=== PATIENT | male | born 1970 | race Hispanic/Latino ===

== ENCOUNTER → 2025-01-18 | Outpatient (CLI) | payer BC ==
--- NOTE | 2025-01-18 10:56 | HMCIMG ---
MRI LUMBAR SPINE WITHOUT CONTRAST INDICATION: Left lower extremity pain and numbness COMPARISON: None PARAMETERS: Long and short axis fat and water weighted sequences were obtained through the lumbar spine. FINDINGS: Normal lordosis of the lumbar spine is maintained. The lumbar vertebral bodies are normal in height, without evidence for acute compression fracture or osseous marrow replacing process. The conus medullaris is normal in signal and terminates at the appropriate level. T12-L1: No significant disc displacement, neuroforaminal narrowing, or central canal stenosis. No significant facet disease identified. L1-L2: No significant disc displacement, neuroforaminal narrowing, or central canal stenosis. No significant facet disease identified. L2-L3: No significant disc displacement, neuroforaminal narrowing, or central canal stenosis. No significant facet disease identified. L3-L4: Shallow left foraminal and posterior right paracentral/foraminal disc displacement contributing to mild bilateral inferior neural foraminal narrowing without any significant central canal stenosis. L4-L5: Extremely shallow right and left foraminal disc displacement and mild bilateral facet disease contributing to nominal bilateral inferior neural foraminal narrowing without any significant central canal stenosis. L5-S1: Shallow posterior disc displacement, including right and left foraminal extension and mild disc height loss as well as mild left greater than right facet disease contributing to mild mass effect upon the descending left nerve root. No evidence for intraannular tear or discitis. Multilevel mild anterior endplate osteophytic spurring. The pre- and paraspinous soft tissues appear unremarkable. ANCILLARY FINDINGS: 2.6 cm likely simple left renal cyst along the medial cortex at the lower portion of the left kidney. Miniscule simple cysts noted along the right kidney at the same level. IMPRESSION: 1. Shallow posterior disc displacement, including right and left foraminal extension, and mild disc height loss as well as mild left greater than right facet disease at the L5-S1 level contributing to mild mass effect upon the descending left nerve root. 2. Mild bilateral inferior neuroforaminal narrowing at the L3-L4 greater than L4-L5 levels. 3. 2.6 cm left renal cyst should be confirmed as simple with nonemergent outpatient sonographic imaging.
== END | disposition home or self-care (01) ==
LOC: RAH 07:47
PROVIDERS: ATTEND Internal Medicine
DX: M51.16 Intervertebral disc disorders with radiculopathy, lumbar region (principal); M47.817 Spondylosis without myelopathy or radiculopathy, lumbosacral region; M51.27 Other intervertebral disc displacement, lumbosacral region; M48.061 Spinal stenosis, lumbar region without neurogenic claudication; M47.26 Other spondylosis with radiculopathy, lumbar region; N28.1 Cyst of kidney, acquired
CPT/HCPCS: 72148